=== PATIENT | male | born 1970 | race Caucasian/White ===

== ENCOUNTER 2018-04-29 10:56 | Inpatient (IN) | payer BC ==
[2018-04-29 12:27] VITALS: BMI 28.0
--- NOTE | 2018-04-29 15:32 | HP ---
CIWA Score - CIWA Score Nausea/Vomitin-No Nausea/No Vomiting Muscle Tremors: 3 Anxiety: 4-Mod. Anxious/Guarded Agitation: 4-Moderately Restless Paroxysmal Sweats: 1-Minimal Palms Moist Orientation: 0-Oriented Tacttile Disturbances: 0-None Auditory Disturbances: 0-None Visual Disturbances: 0-None Headache: 2-Mild CIWA-Ar Total Score: 14 Admission ROS [facility] - HPI Chief Complaint: ALCOHOL WITHDRAWAL SX Allergies/Adverse Reactions: Allergies Allergy/AdvReac Type Severity Reaction Status Date / Time No Known Allergies Allergy Verified 04/29/18 12:16 History of Present Illness: 47 Y/O H/MALE WITH A HX OF ALCOHOL DEPENDENCE SEEKING DETOX TX. PT HAS PREVIOUS HX OF DRUG TREATMENT. Exam Limitations: No Limitations, Intoxication (BUT COHERENT) - Ebola screening Have you traveled outside of the country in the last 21 days: No Have you had contact with anyone from an Ebola affected area: No Have you been sick,other than usual withdrawal symptoms: No - Review of Systems Constitutional: Chills, Loss of Appetite, Night Sweats, Changes in sleep (TAKES TRAZODONE FOR SLEEP), Unintentional Wgt. Loss EENT: reports: Blurred Vision, Nose Congestion Respiratory: reports: No Symptoms reported Cardiac: reports: Lightheadedness GI: reports: Diarrhea, Nausea, Poor Appetite, Poor Fluid Intake, Indigestion, Abdominal cramping : reports: Frequency Musculoskeletal: reports: Back Pain Integumentary: reports: No Symptoms Reported Neuro: reports: Headache, Tremors, Dizziness Endocrine: reports: No Symptoms Reported Hematology: reports: No Symptoms Reported Psychiatric: reports: Orientated x3 Other Systems: Reviewed and Negative Patient History - Patient Medical History Hx Anemia: No Hx Asthma: No Hx Chronic Obstructive Pulmonary Disease (COPD): No Hx Cardiac Disorders: No Hx Hypertension: No Hx Hypercholesterolemia: No HX Cerebrovascular Accident: No Hx Seizures: No (DENIES) Hx Diabetes: No Hx Gastrointestinal Disorders: Yes (GERD-TAKES NEXIUM) Hx Genitourinary Disorders: No Hx Sexually Transmitted Disorders: No (DENIES) Hx Renal Disease (ESRD): No Hx Thyroid Disease: No Hx Human Immunodeficiency Virus (HIV): No (NEGATIVE HX) Hx Hepatitis C: No Hx Depression: Yes (DECLINED PSYCH EVAL-- PT STATES NEVER SEEN ONE BEFORE) Hx Suicide Attempt: No (DENIES S/I) Hx Bipolar Disorder: No Hx Schizophrenia: No - Patient Surgical History Past Surgical History: Yes Hx Neurologic Surgery: No Hx Cataract Extraction: No Hx Cardiac Surgery: No Hx Lung Surgery: No Hx Breast Surgery: No Hx Breast Biopsy: No Hx Abdominal Surgery: No Hx Appendectomy: No Hx Cholecystectomy: No Hx Genitourinary Surgery: No Hx Orthopedic Surgery: No Other Surgical History: abrasion on the throat 2009 - PPD History Previous Implant?: Yes (HX PPD POSITIVE) Results: CXR NEG(05/25/12) PPD to be Administered?: No - Reproductive History Patient is a Female of Child Bearing Age (11 -55 yrs old): No (MALE) - Smoking Cessation Smoking history: Current every day smoker Have you smoked in the past 12 months: Yes Aproximately how many cigarettes per day: 20 Hx Chewing Tobacco Use: No Initiated information on smoking cessation: Yes 'Breaking Loose' booklet given: 04/29/18 - Substance & Tx. History Hx Alcohol Use: Yes Substance Use Type: Alcohol Hx Substance Use Treatment: Yes - Substances Abused Alcohol Route: Oral Frequency: Daily Amount used: Beer - 1 (12 pack) Age of first use: 20 Date of Last Use: 04/29/18 Family Disease History - Family Disease History Family History: Denies Admission Physical Exam BHS - Vital Signs Vital Signs: Vital Signs - 24 hr 04/29/18 12:25 Temperature 98.4 F Pulse Rate 81 Respiratory 20 Rate Blood Pressure 140/89 - Physical General Appearance: Yes: Moderate Distress, Alcohol on Breath, Intoxicated, Irritable, Anxious HEENTM: Yes: EOMI, Normocephalic, MÓNICA, Pharynx Normal Respiratory: Yes: Chest Non-Tender, Lungs Clear, Normal Breath Sounds, No Respiratory Distress Neck: Yes: No masses,lesions,Nodules, Supple, Trachea in good position Breast: Yes: Breast Exam Deferred Cardiology: Yes: Regular Rhythm, Regular Rate, S1, S2 Abdominal: Yes: Normal Bowel Sounds, Non Tender, Flat, Soft Genitourinary: Yes: Other (N/C) Back: Yes: Within Normal Limits Musculoskeletal: Yes: full range of Motion, Gait Steady Extremities: Yes: Normal Range of Motion, Non-Tender 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 NML intact, Fully Oriented, Alert, Motor Strength 5/5 Integumentary: Yes: Dry, Warm Lymphatic: Yes: Within Normal Limits - Diagnostic (1) Alcohol dependence with uncomplicated withdrawal Current Visit: Yes Status: Acute (2) GERD (gastroesophageal reflux disease) Current Visit: Yes Status: Chronic Qualifiers: Esophagitis presence: esophagitis presence not specified Qualified Code(s) : K21.9 - Gastro-esophageal reflux disease without esophagitis (3) Depressed affect Current Visit: Yes Status: Acute Cleared for Admission [facility] - Detox or Rehab [facility] Level of Care: Medically Managed Detox Regimen/Protocol: Librium S Breath Alcohol Content Breath Alcohol Content: 0.277 Urine Drug Screen - Results Drug Screen Negative: Yes
[2018-04-29] MEDS ORDERED: IBUPROFEN 400 MG TABLET (FP) PO PRN (15:52)
[2018-04-29] MEDS ORDERED: MAGNESIUM HYDROX 2400MG/30ML ORAL SUSPENSION 30 ML CUP PO PRN (15:52)
[2018-04-29] MEDS ORDERED: chlordiazePOXIDE HCL 25 MG CAPSULE PO PRN (15:52)
[2018-04-29] MEDS ORDERED: LOPERAMIDE HCL 2 MG CAPSULE PO PRN (15:52)
[2018-04-29] MEDS ORDERED: MAGNESIUM CITRATE 300 ML BOTTLE PO PRN (15:52)
[2018-04-29] MEDS ORDERED: guaiFENesin/D-METHORPHAN HB 10 ML UNIT-DOSE CUPS PO PRN (15:52)
[2018-04-29] MEDS ORDERED: MENTHOL/PHENOL 1 EACH UD MM PRN (15:52)
[2018-04-29] MEDS ORDERED: NICOTINE POLACRILEX 4 MG GUM BC PRN (15:52)
[2018-04-29] MEDS ORDERED: ACETAMINOPHEN 325 MG TABLET (FP) PO PRN (15:52)
[2018-04-29] MEDS ORDERED: P-EPHED 60MG/TRIPROLIDI 2.5MG TABLET PO PRN (15:52)
[2018-04-29] MEDS ORDERED: PANTOPRAZOLE 20 MG TABLET (FP) PO ONE (17:00)
[2018-04-29] MEDS: NICOTINE 21 MG/24 HOURS TOPICAL PATCH TD SCH (19:12)
[2018-04-29] MEDS: chlordiazePOXIDE HCL 25 MG CAPSULE PO SCH ×2 (19:13→22:18)
[2018-04-29] MEDS: THIAMINE HCL 100 MG TABLET (FP) PO SCH (22:18)
[2018-04-29] MEDS: MELATONIN 5 MG TABLETS PO PRN (22:19)
[2018-04-30] MEDS: MAG HYDROX/AL HYDROX/SIMETH 30 ML UNIT-DOSE CUP PO PRN ×2 (05:51→11:06)
[2018-04-30] MEDS: chlordiazePOXIDE HCL 25 MG CAPSULE PO SCH ×4 (05:51→22:17)
--- NOTE | 2018-04-30 08:44 | EKG ---
Test Reason : Blood Pressure : / mmHG Vent. Rate : 103 BPM Atrial Rate : 103 BPM P-R Int : 130 ms QRS Dur : 094 ms QT Int : 332 ms P-R-T Axes : 049 054 024 degrees QTc Int : 434 ms SINUS TACHYCARDIA NONSPECIFIC ST ABNORMALITY Confirmed by EM ASH MD ([id number]) on 04/30/2018 8:43:48 AM Referred By: Confirmed By:EM ASH MD
[2018-04-30 10:53] LABS: HEMATOCRIT 46.2 % (35.4-49); HEMOGLOBIN 16.1 GM/dL (11.7-16.9); MCH 32.6 pg (25.7-33.7); MCHC 34.9 g/dl (32.0-35.9); MEAN CELL VOLUME 93.6 fl (80-96); PLATELET COUNT 161 K/MM3 (134-434); RBC 4.94 M/mm3 (4.00-5.60); RDW 13.2 % (11.9-15.9); WHITE BLOOD COUNT 4.8 K/mm3 (4.0-10.0)
[2018-04-30] MEDS: NICOTINE 21 MG/24 HOURS TOPICAL PATCH TD SCH (11:04)
[2018-04-30] MEDS: PRENATAL VITAMINS W/ FOLIC ACID TABLET (FP) PO SCH (11:04)
[2018-04-30] MEDS: PANTOPRAZOLE 40 MG TABLET (FP) PO SCH (11:04)
[2018-04-30 11:32] LABS: SICKLE CELL SCREEN NEGATIVE (NEGATIVE)
--- NOTE | 2018-04-30 12:29 | CONSULT ---
[facility] Psychiatric Consult - Data Date of interview: 04/30/18 Admission source: [facility] Identifying data: Patient is a 46 year male, father of two, employed, and domiciled. This is patient's first admission to detox at [facility]. Pt. adimtted to [facility] for alcohol dependence. Substance Abuse History: - Smoking Cessation. Smoking history: Current every day smoker. Have you smoked in the past 12 months: Yes. Aproximately how many cigarettes per day: 20. Hx Chewing Tobacco Use: No. Initiated information on smoking cessation: Yes. 'Breaking Loose' booklet given: 04/29/18. - Substance & Tx. History. Hx Alcohol Use: Yes. Substance Use Type: Alcohol. Hx Substance Use Treatment: Yes. - Substances Abused. Alcohol. Route: Oral. Frequency: Daily. Amount used: Beer - 1 (12 pack). Age of first use: 20. Date of Last Use: 04/29/18 Medical History: abrasion on the throat 2009, GERD Psychiatric History: Patient denies h/o psychiatric hospitalization, outpatient care, and suicide attempt. Pt reports poor sleep and a history of anxiety. Physical/Sexual Abuse/Trauma History: Denies. Mental Status Exam - Mental Status Exam Alert and Oriented to: Time, Place, Person Cognitive Function: Good Patient Appearance: Well Groomed Mood: Hopeful, Euthymic Affect: Mood Congruent Patient Behavior: Appropriate, Cooperative Speech Pattern: Appropriate Voice Loudness: Normal Thought Process: Intact, Goal Oriented Thought Disorder: Not Present Hallucinations: Denies Suicidal Ideation: Denies Homicidal Ideation: Denies Insight/Judgement: Poor Sleep: Poorly Appetite: Fair Muscle strength/Tone: Normal Gait/Station: Normal Psychiatric Findings - Problem List ([place] 1, 2,3) (1) Alcohol dependence with uncomplicated withdrawal Current Visit: Yes Status: Acute (2) Insomnia Current Visit: Yes Status: Acute - Initial Treatment Plan Initial Treatment Plan: Psychoeducation provided. Detoxification in progress. Trazodone 50mg qhs ordered. Benefits and side effects discussed. Pt. reports favorable effects from previously accepting trazodone. Pt. made aware of the risk of priapism. Verbal consent given.
--- NOTE | 2018-04-30 13:06 | PN ---
S CIWA - CIWA Score Nausea/Vomitin-No Nausea/No Vomiting Muscle Tremors: 4-Moderate,w/Arms Extend Anxiety: 4-Mod. Anxious/Guarded Agitation: 4-Moderately Restless Paroxysmal Sweats: 1-Minimal Palms Moist Orientation: 0-Oriented Tacttile Disturbances: 0-None Auditory Disturbances: 0-None Visual Disturbances: 0-None Headache: 0-None Present CIWA-Ar Total Score: 13 BHS Progress Note (SOAP) Subjective: ANXIETY,SLIGHT TREMORS, SWEATS. OOB AMBULATING WITH STEADY GAIT. Objective: 04/30/18 13:05 Vital Signs 04/30/18 04/30/18 04/30/18 05:30 06:00 06:10 Temperature 96.7 F L Pulse Rate 68 69 69 Respiratory 18 18 18 Rate Blood Pressure 110/65 04/30/18 04/30/18 04/30/18 06:30 07:00 07:30 Temperature Pulse Rate 70 75 82 Respiratory 18 18 18 Rate Blood Pressure 04/30/18 04/30/18 04/30/18 08:00 08:30 09:00 Temperature Pulse Rate 90 84 86 Respiratory 18 18 Rate Blood Pressure 04/30/18 04/30/18 04/30/18 09:30 09:34 10:00 Temperature 99.0 F Pulse Rate 85 86 86 Respiratory 18 18 18 Rate Blood Pressure 132/92 Laboratory Tests 04/30/18 06:00 WBC 4.8 RBC 4.94 Hgb 16.1 Hct 46.2 MCV 93.6 MCH 32.6 MCHC 34.9 RDW 13.2 Plt Count 161 MPV 9.0 Sickle Cell Screen Negative OTHER LABS PENDING UA UNCOLLECTED Assessment: 04/30/18 13:06 WITHDRAWAL SX Plan: CONTINUE DETOX
[2018-04-30 13:34] LABS: ALBUMIN 4.7 g/dl (3.4-5.0); ALK PHOS 117 U/L (45-117); ANION GAP 9 (8-16); BILIRUBIN,TOTAL 0.6 mg/dL (0.2-1.0); BLOOD UREA NITROGEN 6 mg/dL (7-18); CALCIUM 8.7 mg/dL (8.5-10.1); CHLORIDE 101 mmol/L (98-107); CO2 30 mmol/L (21-32); GLUCOSE,RANDOM 151 mg/dL (74-106); POTASSIUM 4.9 mmol/L (3.5-5.1); SGOT/AST 47 U/L (15-37); SGPT/ALT 38 U/L (12-78); SODIUM 140 mmol/L (136-145); TOT PROT 8.8 g/dl (6.4-8.2)
[2018-04-30] MEDS: hydrOXYzine PAMOATE 50 MG CAPSULE (FP) PO PRN ×2 (17:36→22:18)
[2018-04-30] MEDS: traZODone HCL 50 MG TABLET (FP) PO SCH (22:17)
[2018-04-30] MEDS: THIAMINE HCL 100 MG TABLET (FP) PO SCH (22:17)
[2018-05-01] MEDS: MAG HYDROX/AL HYDROX/SIMETH 30 ML UNIT-DOSE CUP PO PRN ×2 (00:48→23:06)
[2018-05-01] MEDS: chlordiazePOXIDE HCL 25 MG CAPSULE PO SCH ×2 (06:00→10:24)
[2018-05-01] MEDS: PRENATAL VITAMINS W/ FOLIC ACID TABLET (FP) PO SCH (10:24)
[2018-05-01] MEDS: PANTOPRAZOLE 40 MG TABLET (FP) PO SCH (10:24)
[2018-05-01] MEDS: NICOTINE 21 MG/24 HOURS TOPICAL PATCH TD SCH (10:25)
--- NOTE | 2018-05-01 12:36 | PN ---
S CIWA - CIWA Score Nausea/Vomitin-No Nausea/No Vomiting Muscle Tremors: 4-Moderate,w/Arms Extend Anxiety: 4-Mod. Anxious/Guarded Agitation: 4-Moderately Restless Paroxysmal Sweats: 1-Minimal Palms Moist Orientation: 0-Oriented Tacttile Disturbances: 0-None Auditory Disturbances: 0-None Visual Disturbances: 0-None Headache: 0-None Present CIWA-Ar Total Score: 13 BHS Progress Note (SOAP) Subjective: ANXIETY, TREMORS, SWEATS. Objective: 05/01/18 12:35 Vital Signs 05/01/18 05/01/18 05/01/18 06:18 06:30 09:33 Temperature 97.6 F 97.1 F L Pulse Rate 68 73 Respiratory 18 18 18 Rate Blood Pressure 102/63 136/90 Laboratory Tests 04/30/18 04/30/18 04/30/18 06:00 06:00 06:00 WBC 4.8 RBC 4.94 Hgb 16.1 Hct 46.2 MCV 93.6 MCH 32.6 MCHC 34.9 RDW 13.2 Plt Count 161 MPV 9.0 Sickle Cell Screen Negative Sodium 140 Potassium 4.9 D Chloride 101 Carbon Dioxide 30 Anion Gap 9 BUN 6 L Creatinine 1.0 Creat Clearance w eGFR > 60 Random Glucose 151 H D Calcium 8.7 Total Bilirubin 0.6 AST 47 H D ALT 38 D Alkaline Phosphatase 117 Total Protein 8.8 H Albumin 4.7 RPR Titer HIV 1&2 Antibody Screen Negative HIV P24 Antigen Negative 04/30/18 06:00 WBC RBC Hgb Hct MCV MCH MCHC RDW Plt Count MPV Sickle Cell Screen Sodium Potassium Chloride Carbon Dioxide Anion Gap BUN Creatinine Creat Clearance w eGFR Random Glucose Calcium Total Bilirubin AST ALT Alkaline Phosphatase Total Protein Albumin RPR Titer Nonreactive HIV 1&2 Antibody Screen HIV P24 Antigen Assessment: 05/01/18 12:35 WITHDRAWAL SX Plan: CONTINUE DETOX
[2018-05-01] MEDS: hydrOXYzine PAMOATE 50 MG CAPSULE (FP) PO PRN ×3 (12:57→23:06)
[2018-05-01] MEDS: chlordiazePOXIDE 5 MG CAPSULE PO SCH ×2 (17:45→23:03)
[2018-05-01] MEDS: THIAMINE HCL 100 MG TABLET (FP) PO SCH (23:03)
[2018-05-01] MEDS: traZODone HCL 50 MG TABLET (FP) PO SCH (23:03)
[2018-05-02] MEDS: MELATONIN 5 MG TABLETS PO PRN ×2 (02:13→22:44)
[2018-05-02] MEDS: chlordiazePOXIDE 5 MG CAPSULE PO SCH ×2 (05:39→10:43)
[2018-05-02] MEDS: hydrOXYzine PAMOATE 50 MG CAPSULE (FP) PO PRN ×2 (09:33→22:46)
[2018-05-02] MEDS: NICOTINE 21 MG/24 HOURS TOPICAL PATCH TD SCH (09:35)
[2018-05-02] MEDS: PANTOPRAZOLE 40 MG TABLET (FP) PO SCH (09:35)
[2018-05-02] MEDS: PRENATAL VITAMINS W/ FOLIC ACID TABLET (FP) PO SCH (09:35)
--- NOTE | 2018-05-02 14:27 | PN ---
S Progress Note (SOAP) Subjective: Anxious, tremor, chills, diarrhea; patient requesting Rx for vistaril to help with anxiety and insomnia. As per patient, he has an appt on Thursday with a psychiatrist and needs vistaril to at least help with sleeping. Medical Affairs Leader explained to patient that he should not take vistaril if he's going to drive or operate machinery due to drowsiness. Patient stated he will only take vistaril at bedtime. Vistaril 50mg PO qhs prn #30, eRx to patient's pharmacy Objective: 05/02/18 14:24 Last Vital Signs Temp Pulse Resp BP Pulse Ox 96.7 F L 63 18 116/76 05/02/18 14:04 05/02/18 14:04 05/02/18 14:04 05/02/18 14:04 Laboratory Tests 04/30/18 04/30/18 04/30/18 06:00 06:00 06:00 WBC 4.8 RBC 4.94 Hgb 16.1 Hct 46.2 MCV 93.6 MCH 32.6 MCHC 34.9 RDW 13.2 Plt Count 161 MPV 9.0 Sickle Cell Screen Negative Sodium 140 Potassium 4.9 D Chloride 101 Carbon Dioxide 30 Anion Gap 9 BUN 6 L Creatinine 1.0 Creat Clearance w eGFR > 60 Random Glucose 151 H D Calcium 8.7 Total Bilirubin 0.6 AST 47 H D ALT 38 D Alkaline Phosphatase 117 Total Protein 8.8 H Albumin 4.7 RPR Titer HIV 1&2 Antibody Screen Negative HIV P24 Antigen Negative 04/30/18 06:00 WBC RBC Hgb Hct MCV MCH MCHC RDW Plt Count MPV Sickle Cell Screen Sodium Potassium Chloride Carbon Dioxide Anion Gap BUN Creatinine Creat Clearance w eGFR Random Glucose Calcium Total Bilirubin AST ALT Alkaline Phosphatase Total Protein Albumin RPR Titer Nonreactive HIV 1&2 Antibody Screen HIV P24 Antigen Labs reviewed: serum glucose 151mg/dl Assessment: 05/02/18 14:25 Withdrawal symptoms Noted with hyperglycemia Plan: Continue detox Hyperglycemia: monitor FS, follow up with PCP for monitoring
[2018-05-02] MEDS: INSULIN SLIDING SCALE (NOVOLOG) 1 VIAL SQ SCH (16:45)
[2018-05-02] MEDS: chlordiazePOXIDE HCL 10 MG CAPSULE PO SCH ×2 (17:41→22:43)
[2018-05-02] MEDS: THIAMINE HCL 100 MG TABLET (FP) PO SCH (22:43)
[2018-05-02] MEDS: traZODone HCL 50 MG TABLET (FP) PO SCH (22:43)
[2018-05-03] MEDS: chlordiazePOXIDE HCL 10 MG CAPSULE PO SCH (05:42)
[2018-05-03] MEDS: hydrOXYzine PAMOATE 50 MG CAPSULE (FP) PO PRN (05:49)
[2018-05-03] MEDS: INSULIN SLIDING SCALE (NOVOLOG) 1 VIAL SQ SCH (06:28)
[2018-05-03 06:31] VITALS: BP 109/63; PULSE 49; TEMP 97.1
[2018-05-03 10:19] LABS: URINE APPEARANCE CLEAR; URINE BILIRUBIN NEGATIVE (<2.0 mg/dL); URINE COLOR YELLOW; URINE GLUCOSE (UA) NEGATIVE (NEGATIVE); URINE KETONE NEGATIVE (NEGATIVE); URINE LEUK ESTERASE NEGATIVE (NEGATIVE); URINE NITRITE NEGATIVE (NEGATIVE); URINE PROTEIN NEGATIVE (NEGATIVE); URINE UROBILINOGEN NEGATIVE mg/dL (0.2-1.0)
== END 2018-05-03 07:15 | disposition home or self-care (01) | DRG 897 ==
LOC: YASAS 10:56 → Y3N 16:04
PROVIDERS: ADMIT Surgery; ATTEND Surgery
PROC: HZ2ZZZZ Detoxification Services for Substance Abuse Treatment (ICD-10-PCS; principal; 2018-04-29)
DX: F10.230 Alcohol dependence with withdrawal, uncomplicated (principal); F17.210 Nicotine dependence, cigarettes, uncomplicated; F32.9 Major depressive disorder, single episode, unspecified; F41.9 Anxiety disorder, unspecified; K21.9 Gastro-esophageal reflux disease without esophagitis; R73.9 Hyperglycemia, unspecified; R76.11 Nonspecific reaction to tuberculin skin test without active tuberculosis; G47.00 Insomnia, unspecified
CPT/HCPCS: 36415; 71046-TC-FY; 80053; 81003; 82962; 85027; 85660; 86593; 87389; 93005; 93010

== ENCOUNTER 2018-10-05 09:53 | Inpatient (IN) | payer BC ==
[2018-10-05 10:25] VITALS: BMI 30.3
--- NOTE | 2018-10-05 12:13 | HP ---
CIWA Score Nausea/Vomitin-No Nausea/No Vomiting Muscle Tremors: None Anxiety: 4-Mod. Anxious/Guarded Agitation: 0-Normal Activity Paroxysmal Sweats: No Perspiration Orientation: 2-Disoriented Date<2 days Tacttile Disturbances: 3-Moderate Itch/Numb/Burn Auditory Disturbances: 3-Moderate Harsh/Frighten Visual Disturbances: 3-Moderate Sensitivity Headache: 0-None Present CIWA-Ar Total Score: 15 - Admission Criteria [facility] Guidelines: Admission for Medically Managed Detox: Requires at least one of the followin. CIWA greater than 12 2. Seizures within the past 24 hours 3. Delirium tremens within the past 24 hours 4. Hallucinations within the past 24 hours 5. Acute intervention needed for co occurring medical disorder 6. Acute intervention needed for co occurring psychiatric disorder 7. Severe withdrawal that cannot be handled at a lower level of care (continued vomiting, continued diarrhea, abnormal vital signs) requiring intravenous medication and/or fluids 8. Patient presents the following: CIWA greater than 12 Admission Criteria Met: Admission criteria met Admission ROS [facility] - HPI Allergies/Adverse Reactions: Allergies Allergy/AdvReac Type Severity Reaction Status Date / Time No Known Allergies Allergy Verified 10/05/18 11:36 History of Present Illness: patient here requesting detox from etoh use , reports 12-pk /day since d/c from [employer] [id number] service . latest use today , current TED 0.339 , denies seizures, blackouts , + tremors if not drinking , DUI 1992 , + driving currently denies driving while intoxicated . utox negative . 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 Exam Limitations: Intoxication - Ebola screening Have you traveled outside of the country in the last 21 days: No Have you had contact with anyone from an Ebola affected area: No Have you been sick,other than usual withdrawal symptoms: No Do you have a fever: No - Review of Systems Constitutional: See HPI EENT: reports: Other (denies vision changes) Respiratory: reports: No Symptoms reported Cardiac: reports: No Symptoms Reported GI: reports: No Symptoms Reported : reports: No Symptoms Reported Musculoskeletal: reports: No Symptoms Reported Integumentary: reports: No Symptoms Reported Neuro: reports: See HPI Psychiatric: reports: Orientated x3, Agitated, Depressed Patient History - Patient Medical History Hx Anemia: No Hx Asthma: No Hx Chronic Obstructive Pulmonary Disease (COPD): No Hx Cardiac Disorders: No Hx Hypertension: No Hx Hypercholesterolemia: No HX Cerebrovascular Accident: No Hx Seizures: No Hx Diabetes: No Hx Gastrointestinal Disorders: Yes (gastric ulcer in 11/2010) Hx Genitourinary Disorders: No Hx Sexually Transmitted Disorders: No Hx Renal Disease (ESRD): No Hx Thyroid Disease: No Hx Human Immunodeficiency Virus (HIV): No (NEGATIVE HX) Hx Hepatitis C: No Hx Depression: No Hx Suicide Attempt: No Hx Bipolar Disorder: No Hx Schizophrenia: No - Patient Surgical History Past Surgical History: Yes Hx Neurologic Surgery: No Hx Cataract Extraction: No Hx Cardiac Surgery: No Hx Lung Surgery: No Hx Breast Surgery: No Hx Breast Biopsy: No Hx Abdominal Surgery: No Hx Appendectomy: No Hx Cholecystectomy: No Hx Genitourinary Surgery: No Hx Section: No Hx Orthopedic Surgery: No Other Surgical History: abrasion, throat in 11/2009 Anesthesia Reaction: No - PPD History Documented Results: Positive w/o proof Results: CXR NEG(05/25/12) - Smoking Cessation Smoking history: Current every day smoker Have you smoked in the past 12 months: Yes Aproximately how many cigarettes per day: 20 Hx Chewing Tobacco Use: No Initiated information on smoking cessation: No - Substances Abused Alcohol-beer Route: Oral Frequency: Daily Amount used: 2-6 pks. Age of first use: 18 Date of Last Use: 10/05/18 Family Disease History - Family Disease History Family History: Unable to Obtain (intoxicated) Admission Physical Exam S - Vital Signs Vital Signs: Vital Signs - 24 hr 10/05/18 10:22 Temperature 97.9 F Pulse Rate 89 Respiratory 18 Rate Blood Pressure 143/95 - Physical General Appearance: Yes: Moderate Distress, Intoxicated HEENTM: Yes: EOMI, Hearing grossly Normal, Normocephalic, Normal Voice, Scleral Ictenus R, Scleral Ictenus L Respiratory: Yes: Chest Non-Tender, Lungs Clear, Normal Breath Sounds Neck: Yes: No masses,lesions,Nodules, Trachea in good position Breast: Yes: Breast Exam Deferred Cardiology: Yes: Regular Rhythm, Regular Rate, S1, S2, Tachycardia Abdominal: Yes: Normal Bowel Sounds, Non Tender, Soft Genitourinary: Yes: Within Normal Limits Back: Yes: Normal Inspection Musculoskeletal: Yes: full range of Motion, Gait Steady Extremities: Yes: Normal Capillary Refill, Non-Tender Neurological: Yes: Alert, Motor Strength 5/5, Disoriented Integumentary: Yes: Normal Color, Dry, Warm - Diagnostic (1) Alcohol intoxication delirium Current Visit: Yes Status: Acute (2) Nicotine dependence Current Visit: Yes Status: Chronic Qualifiers: Nicotine product type: cigarettes BHS Breath Alcohol Content Breath Alcohol Content: 0.339 Urine Drug Screen - Results Drug Screen Negative: Yes
[2018-10-05] MEDS ORDERED: IBUPROFEN 400 MG TABLET (FP) PO PRN (12:20)
[2018-10-05] MEDS ORDERED: P-EPHED 60MG/TRIPROLIDI 2.5MG TABLET PO PRN (12:20)
[2018-10-05] MEDS ORDERED: guaiFENesin/D-METHORPHAN HB 10 ML UNIT-DOSE CUPS PO PRN (12:20)
[2018-10-05] MEDS ORDERED: MAGNESIUM CITRATE 300 ML BOTTLE PO PRN (12:20)
[2018-10-05] MEDS ORDERED: MAGNESIUM HYDROX 2400MG/30ML ORAL SUSPENSION 30 ML CUP PO PRN (12:20)
[2018-10-05] MEDS ORDERED: MENTHOL/PHENOL 1 EACH UD MM PRN (12:20)
[2018-10-05] MEDS ORDERED: LOPERAMIDE HCL 2 MG CAPSULE PO PRN (12:20)
[2018-10-05] MEDS ORDERED: ACETAMINOPHEN 325 MG TABLET (FP) PO PRN (12:20)
[2018-10-05] MEDS: chlordiazePOXIDE HCL 25 MG CAPSULE PO PRN (14:52)
[2018-10-05] MEDS: chlordiazePOXIDE HCL 25 MG CAPSULE PO SCH ×2 (18:06→22:22)
[2018-10-05] MEDS: MELATONIN 5 MG TABLETS PO PRN (22:22)
[2018-10-05] MEDS: THIAMINE HCL 100 MG TABLET (FP) PO SCH (22:22)
[2018-10-06] MEDS: chlordiazePOXIDE HCL 25 MG CAPSULE PO SCH ×4 (05:34→22:16)
[2018-10-06 10:15] LABS: HEMATOCRIT 46.8 % (35.4-49); HEMOGLOBIN 16.3 GM/dL (11.7-16.9); MCH 31.9 pg (25.7-33.7); MCHC 34.8 g/dl (32.0-35.9); MEAN CELL VOLUME 91.6 fl (80-96); MEAN PLT VOLUME 8.8 fl (7.5-11.1); PLATELET COUNT 179 K/MM3 (134-434); RBC 5.11 M/mm3 (4.00-5.60); WHITE BLOOD COUNT 6.5 K/mm3 (4.0-10.0)
[2018-10-06] MEDS: PRENATAL VITAMINS W/ FOLIC ACID TABLET (FP) PO SCH (10:17)
[2018-10-06 10:30] LABS: ALBUMIN 4.5 g/dl (3.4-5.0); ALK PHOS 128 U/L (45-117); ANION GAP 13 MMOL/L (8-16); BILIRUBIN,TOTAL 0.7 mg/dL (0.2-1); BLOOD UREA NITROGEN 7 mg/dL (7-18); CALCIUM 8.7 mg/dL (8.5-10.1); CHLORIDE 98 mmol/L (98-107); CO2 25 mmol/L (21-32); CREATININE 0.9 mg/dL (0.55-1.3); GLUCOSE,RANDOM 119 mg/dL (74-106); POTASSIUM 3.9 mmol/L (3.5-5.1); SGOT/AST 64 U/L (15-37); SGPT/ALT 35 U/L (13-61); SODIUM 137 mmol/L (136-145); TOT PROT 8.3 g/dl (6.4-8.2)
--- NOTE | 2018-10-06 11:38 | PN ---
S CIWA - CIWA Score Nausea/Vomitin-No Nausea/No Vomiting Muscle Tremors: 3 Anxiety: 4-Mod. Anxious/Guarded Agitation: 4-Moderately Restless Paroxysmal Sweats: 3 Orientation: 0-Oriented Tacttile Disturbances: 0-None Auditory Disturbances: 0-None Visual Disturbances: 0-None Headache: 1-Very Mild CIWA-Ar Total Score: 15 BHS Progress Note (SOAP) Subjective: body aches sweats shakes interrupted sleep insomnia Objective: 10/06/18 11:38 Vital Signs Temperature 97.8 F 10/06/18 11:15 Pulse Rate 63 10/06/18 11:15 Respiratory Rate 16 10/06/18 11:15 Blood Pressure 112/80 10/06/18 11:15 O2 Sat by Pulse Oximetry (%) Laboratory Tests 10/06/18 10/06/18 10/06/18 06:00 06:00 06:00 WBC 6.5 RBC 5.11 Hgb 16.3 Hct 46.8 MCV 91.6 MCH 31.9 MCHC 34.8 RDW 13.0 Plt Count 179 MPV 8.8 Sodium 137 Potassium 3.9 Chloride 98 Carbon Dioxide 25 Anion Gap 13 BUN 7 Creatinine 0.9 Creat Clearance w eGFR > 60 Random Glucose 119 H Calcium 8.7 Total Bilirubin 0.7 AST 64 H ALT 35 Alkaline Phosphatase 128 H Total Protein 8.3 H Albumin 4.5 RPR Titer Nonreactive aaox3 ambulating no acute distress Assessment: 10/06/18 11:38 withdrawal sx Plan: continue detox increase fluids
[2018-10-06] MEDS: chlordiazePOXIDE HCL 25 MG CAPSULE PO PRN (14:08)
[2018-10-06] MEDS: THIAMINE HCL 100 MG TABLET (FP) PO SCH (22:16)
[2018-10-06] MEDS: MELATONIN 5 MG TABLETS PO PRN (22:17)
[2018-10-07] MEDS: chlordiazePOXIDE HCL 25 MG CAPSULE PO PRN ×2 (01:55→14:10)
[2018-10-07] MEDS: chlordiazePOXIDE HCL 25 MG CAPSULE PO SCH ×2 (05:43→10:16)
[2018-10-07] MEDS: PRENATAL VITAMINS W/ FOLIC ACID TABLET (FP) PO SCH (10:16)
--- NOTE | 2018-10-07 12:01 | PN ---
S CIWA - CIWA Score Nausea/Vomitin-No Nausea/No Vomiting Muscle Tremors: 3 Anxiety: 3 Agitation: 3 Paroxysmal Sweats: 2 Orientation: 0-Oriented Tacttile Disturbances: 0-None Auditory Disturbances: 0-None Visual Disturbances: 0-None Headache: 0-None Present CIWA-Ar Total Score: 11 S Progress Note (SOAP) Subjective: insomnia sweats shakes body aches i tried the melatonin but did not help Objective: 10/07/18 11:59 Vital Signs Temperature 98.2 F 10/07/18 09:32 Pulse Rate 70 10/07/18 09:32 Respiratory Rate 18 10/07/18 09:32 Blood Pressure 123/76 10/07/18 09:32 O2 Sat by Pulse Oximetry (%) Laboratory Tests 10/06/18 10/06/18 10/06/18 06:00 06:00 06:00 WBC 6.5 RBC 5.11 Hgb 16.3 Hct 46.8 MCV 91.6 MCH 31.9 MCHC 34.8 RDW 13.0 Plt Count 179 MPV 8.8 Sodium 137 Potassium 3.9 Chloride 98 Carbon Dioxide 25 Anion Gap 13 BUN 7 Creatinine 0.9 Creat Clearance w eGFR > 60 Random Glucose 119 H Calcium 8.7 Total Bilirubin 0.7 AST 64 H ALT 35 Alkaline Phosphatase 128 H Total Protein 8.3 H Albumin 4.5 RPR Titer Nonreactive aaox3 ambulating no acute distress Assessment: 10/07/18 12:00 withdrawal sx Plan: continue detox increase fluids trazadone 50mg qhs d/c melatoinin
[2018-10-07] MEDS: chlordiazePOXIDE 5 MG CAPSULE PO SCH ×2 (17:47→22:15)
[2018-10-07] MEDS: traZODone HCL 50 MG TABLET (FP) PO SCH (22:14)
[2018-10-07] MEDS: THIAMINE HCL 100 MG TABLET (FP) PO SCH (22:15)
[2018-10-07] MEDS: MAG HYDROX/AL HYDROX/SIMETH 30 ML UNIT-DOSE CUP PO PRN (22:17)
[2018-10-08] MEDS: chlordiazePOXIDE 5 MG CAPSULE PO SCH ×2 (05:59→10:14)
[2018-10-08] MEDS: PRENATAL VITAMINS W/ FOLIC ACID TABLET (FP) PO SCH (10:14)
--- NOTE | 2018-10-08 11:37 | PN ---
BHS Progress Note (SOAP) Subjective: feeling much better little anxiety Objective: 10/08/18 11:36 Vital Signs Temperature 98.2 F 10/08/18 09:53 Pulse Rate 69 10/08/18 09:53 Respiratory Rate 16 10/08/18 09:53 Blood Pressure 120/57 L 10/08/18 09:53 O2 Sat by Pulse Oximetry (%) aaox3 ambulating no acute distress Assessment: 10/08/18 11:36 mild withdrawal sx Plan: continue detox increase fluids d/c in am
[2018-10-08] MEDS: chlordiazePOXIDE HCL 10 MG CAPSULE PO SCH ×2 (17:48→22:07)
[2018-10-08] MEDS: THIAMINE HCL 100 MG TABLET (FP) PO SCH (22:07)
[2018-10-08] MEDS: traZODone HCL 50 MG TABLET (FP) PO SCH (22:07)
[2018-10-09] MEDS: MAG HYDROX/AL HYDROX/SIMETH 30 ML UNIT-DOSE CUP PO PRN (02:19)
[2018-10-09] MEDS: chlordiazePOXIDE HCL 10 MG CAPSULE PO SCH (05:45)
[2018-10-09 08:16] VITALS: BP 115/71; PULSE 55; TEMP 97.7
== END 2018-10-09 07:52 | disposition home or self-care (01) | DRG 897 ==
LOC: YASAS 09:53 → Y6N 12:30
PROVIDERS: ADMIT Neuromusculoskeletal Medicine & OMM; ATTEND Neuromusculoskeletal Medicine & OMM
PROC: HZ2ZZZZ Detoxification Services for Substance Abuse Treatment (ICD-10-PCS; principal; 2018-10-05)
DX: F10.121 Alcohol abuse with intoxication delirium (principal); F17.210 Nicotine dependence, cigarettes, uncomplicated; R00.0 Tachycardia, unspecified
CPT/HCPCS: 36415; 80053; 85027; 86593

== ENCOUNTER 2019-02-08 17:42 | Inpatient (IN) | payer BC | END 2019-02-13 09:22 | disposition home or self-care (01) | LOC: YASAS 17:42 → Y3N 02-09 01:09 ==

== ENCOUNTER 2019-02-26 12:41 | Inpatient (IN) | payer BC ==
[2019-02-26 13:48] VITALS: BMI 29.0
--- NOTE | 2019-02-26 15:45 | HP ---
CIWA Score Nausea/Vomitin Muscle Tremors: 2 Anxiety: 2 Agitation: 2 Paroxysmal Sweats: 1-Minimal Palms Moist Orientation: 0-Oriented Tacttile Disturbances: 1-Very Mild Itch/Numbness Auditory Disturbances: 1-Very Mild Visual Disturbances: 0-None Headache: 2-Mild CIWA-Ar Total Score: 13 - Admission Criteria OASAS Guidelines: Admission for Medically Managed Detox: Requires at least one of the followin. CIWA greater than 12 2. Seizures within the past 24 hours 3. Delirium tremens within the past 24 hours 4. Hallucinations within the past 24 hours 5. Acute intervention needed for co occurring medical disorder 6. Acute intervention needed for co occurring psychiatric disorder 7. Severe withdrawal that cannot be handled at a lower level of care (continued vomiting, continued diarrhea, abnormal vital signs) requiring intravenous medication and/or fluids 8. Admission ROS BHS - HPI Chief Complaint: i need help to stop drinking alcohol Allergies/Adverse Reactions: Allergies Allergy/AdvReac Type Severity Reaction Status Date / Time fish derived Allergy Verified 02/26/19 13:37 No Known Drug Allergies Allergy Verified 02/26/19 13:37 History of Present Illness: this 48 years old male with alcohol dependence,seeking detox,withdrawal symptom, had previous admissions before but keep relapsing nicotine dependence 1 pack/day,would like nicotine patch,and gum depression not on medication Exam Limitations: No Limitations - Ebola screening Have you traveled outside of the country in the last 21 days: No (N) Have you had contact with anyone from an Ebola affected area: No Do you have a fever: No - Review of Systems Constitutional: Loss of Appetite, Malaise, Night Sweats, Changes in sleep, Weakness EENT: reports: No Symptoms Reported Respiratory: reports: No Symptoms reported Cardiac: reports: No Symptoms Reported GI: reports: Nausea, Poor Appetite, Abdominal cramping : reports: No Symptoms Reported Musculoskeletal: reports: Back Pain, Muscle Pain Integumentary: reports: Dryness Neuro: reports: Headache, Tremors Endocrine: reports: No Symptoms Reported Hematology: reports: No Symptoms Reported Psychiatric: reports: No Sypmtoms Reported, Judgement Intact, Mood/Affect Appropiate, Orientated x3 Other Systems: Reviewed and Negative Patient History - Patient Medical History Hx Anemia: No Hx Asthma: No Hx Chronic Obstructive Pulmonary Disease (COPD): No Hx Cardiac Disorders: No Hx Hypertension: No Hx Hypercholesterolemia: No HX Cerebrovascular Accident: No Hx Seizures: No Hx Diabetes: No Hx Gastrointestinal Disorders: Yes (gastritis in 11/2010) Hx Genitourinary Disorders: No Hx Sexually Transmitted Disorders: No Hx Renal Disease (ESRD): No Hx Thyroid Disease: No Hx Human Immunodeficiency Virus (HIV): No (NEGATIVE HX last 08/08) Hx Hepatitis C: No Hx Depression: No Hx Suicide Attempt: No (Denies suicidal ideation at this time) Hx Bipolar Disorder: No Hx Schizophrenia: No Other Medical History: no suicidal,no homicidal - Patient Surgical History Past Surgical History: Yes Hx Neurologic Surgery: No Hx Cataract Extraction: No Hx Cardiac Surgery: No Hx Lung Surgery: No Hx Breast Surgery: No Hx Breast Biopsy: No Hx Abdominal Surgery: No Hx Appendectomy: No Hx Cholecystectomy: No Hx Genitourinary Surgery: No Hx Section: No Hx Orthopedic Surgery: No Other Surgical History: abrasion, throat in 11/2009 Anesthesia Reaction: No - PPD History Previous Implant?: Yes Documented Results: Positive w/proof Implanted On Prior [facility] Admission?: No Results: cxr02/11/19neg PPD to be Administered?: No - Smoking Cessation Smoking history: Current every day smoker Have you smoked in the past 12 months: Yes Aproximately how many cigarettes per day: 20 Hx Chewing Tobacco Use: No Initiated information on smoking cessation: Yes 'Breaking Loose' booklet given: 02/26/19 - Substance & Tx. History Hx Alcohol Use: Yes Hx Substance Use: No Substance Use Type: Alcohol Hx Substance Use Treatment: Yes ([facility] 02/09/19 to 02/13/19) - Substances abused Alcohol Substance route: Oral Frequency: Daily Amount used: 12 PACK BEER 12 ozs Age of first use: 18 Date of last use: 02/26/19 Family Disease History - Family Disease History Family History: Denies Admission Physical Exam BHS - Vital Signs Vital Signs: Vital Signs - 24 hr 02/26/19 02/26/19 13:39 15:34 Temperature 98.2 F 98.2 F Pulse Rate 82 82 Respiratory 18 18 Rate Blood Pressure 150/97 150/97 - Physical General Appearance: Yes: Moderate Distress, Tremorous, Irritable, Sweating, Anxious HEENTM: Yes: Normal ENT Inspection, MÓNICA, Pharynx Normal Respiratory: Yes: Lungs Clear, Normal Breath Sounds, No Respiratory Distress Neck: Yes: Within Normal Limits, Supple, Trachea in good position Breast: Yes: Within Normal Limits Cardiology: Yes: Within Normal Limits, Regular Rhythm, Regular Rate, S1, S2 Abdominal: Yes: Within Normal Limits, Normal Bowel Sounds, Non Tender, Flat, Soft Genitourinary: Yes: Within Normal Limits Back: Yes: Muscle Spasm Musculoskeletal: Yes: Back pain, Muscle Pain Extremities: Yes: Tremors 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 NML intact, Fully Oriented, Alert, Motor Strength 5/5 Integumentary: Yes: Within Normal Limits, Dry Lymphatic: Yes: Within Normal Limits - Diagnostic (1) Alcohol dependence with uncomplicated withdrawal Current Visit: No Status: Acute (2) Alcohol abuse with uncomplicated intoxication Current Visit: Yes Status: Acute (3) GERD (gastroesophageal reflux disease) Current Visit: No Status: Chronic Qualifiers: Esophagitis presence: without esophagitis Qualified Code(s): K21.9 - Gastro -esophageal reflux disease without esophagitis (4) History of depression Current Visit: No Status: Chronic Comment: Non-compliant with medication ( prozac). (5) Nicotine dependence Current Visit: No Status: Acute Qualifiers: Nicotine product type: cigarettes Substance use status: in withdrawal Qualified Code(s): F17.213 - Nicotine dependence, cigarettes, with withdrawal (6) PPD positive Current Visit: No Status: Resolved Cleared for Admission S - Detox or Rehab [facility] Level of Care: Medically Managed Detox Regimen/Protocol: Librium Breathalyzer - Breathalyzer Breathalyzer: 0.322 Urine Drug Screen - Test Device Lot number: [id number] Expiration date: 11/18/20 - Control Is test valid?: Yes - Results Drug screen NEGATIVE: No Urine drug screen results: BZO-Benzodiazepines Inpatient Rehab Admission - Rehab Decision to Admit Inpatient rehab admission?: No
[2019-02-26] MEDS ORDERED: IBUPROFEN 400 MG TABLET (FP) PO PRN (16:02)
[2019-02-26] MEDS ORDERED: METHOCARBAMOL 500 MG TABLET PO PRN (16:02)
[2019-02-26] MEDS ORDERED: MENTHOL/PHENOL 1 EACH UD MM PRN (16:02)
[2019-02-26] MEDS ORDERED: BISMUTH SUBSALICYLATE 524 MG/30 ML UD PO PRN (16:02)
[2019-02-26] MEDS ORDERED: ACETAMINOPHEN 325 MG TABLET (FP) PO PRN ×2 (16:02)
[2019-02-26] MEDS ORDERED: MAGNESIUM CITRATE 300 ML BOTTLE PO PRN (16:02)
[2019-02-26] MEDS ORDERED: MAGNESIUM HYDROX 2400MG/30ML ORAL SUSPENSION 30 ML CUP PO PRN (16:02)
[2019-02-26] MEDS ORDERED: MAG HYDROX/AL HYDROX/SIMETH 30 ML UNIT-DOSE CUP PO PRN (16:02)
[2019-02-26] MEDS ORDERED: MELATONIN 5 MG TABLETS PO PRN (16:02)
[2019-02-26] MEDS: NICOTINE 21 MG/24 HOURS TOPICAL PATCH TD SCH (17:24)
[2019-02-26] MEDS: chlordiazePOXIDE HCL 25 MG CAPSULE PO PRN ×2 (17:24→20:55)
[2019-02-26] MEDS: hydrOXYzine PAMOATE 25 MG CAPSULE (FP) PO PRN (19:40)
[2019-02-26] MEDS: THIAMINE HCL 100 MG TABLET (FP) PO SCH (22:32)
[2019-02-26] MEDS: chlordiazePOXIDE HCL 25 MG CAPSULE PO SCH (22:32)
[2019-02-27] MEDS: chlordiazePOXIDE HCL 25 MG CAPSULE PO SCH ×4 (06:04→22:16)
[2019-02-27] MEDS: hydrOXYzine PAMOATE 25 MG CAPSULE (FP) PO PRN (09:18)
[2019-02-27] MEDS: NICOTINE 21 MG/24 HOURS TOPICAL PATCH TD SCH (10:12)
[2019-02-27] MEDS: PRENATAL VITAMINS W/ FOLIC ACID TABLET (FP) PO SCH (10:12)
[2019-02-27 10:41] LABS: ALBUMIN 4.2 g/dl (3.4-5.0); BILIRUBIN,TOTAL 0.5 mg/dL (0.2-1); BLOOD UREA NITROGEN 4.6 mg/dL (7-18); CALCIUM 8.8 mg/dL (8.5-10.1); CREATININE 0.8 mg/dL (0.55-1.3); POTASSIUM 3.8 mmol/L (3.5-5.1); TOT PROT 7.2 g/dl (6.4-8.2)
[2019-02-27 10:55] LABS: HEMATOCRIT 40.3 % (35.4-49); HEMOGLOBIN 13.8 GM/dL (11.7-16.9); MCH 32.2 pg (25.7-33.7); MCHC 34.2 g/dl (32.0-35.9); MEAN CELL VOLUME 94.2 fl (80-96); MEAN PLT VOLUME 8.4 fl (7.5-11.1); PLATELET COUNT 171 K/MM3 (134-434); RBC 4.28 M/mm3 (4.00-5.60); WHITE BLOOD COUNT 3.1 K/mm3 (4.0-10.0)
--- NOTE | 2019-02-27 11:26 | CONSULT ---
[facility] Psychiatric Consult - Data Date of interview: 02/27/19 Admission source: Self-referred Identifying data: Mr Bae is 48 years old [place]-born male, father of 2 childrem, employed at [employer], living with parents seeking detox treatment for alcohol Substance Abuse History: Reports histoy of alcohol use. Refer to addiction counselor's summary for further information Medical History: Significant for GERD, history of surgery for varices in his throat. Smokes cigarettes 1 ppd Psychiatric History: Reports that his first psychiatric contact was in 2018 when [place] [facility] [place], [place] He was diagnosed with MDD and started on Prozac. Reports not currently receiving psychiatric treatment but he is prescribed Prozac 10 mg/day by Madeline Hope MD , his primary care physician. Claims that he stopped taking it 2 weeks ago because of somnolence. Denies previous psychiatric hospitalization or suicidal attempt. At present, reports feeling depressed, anxious and sleeping poorly. Requests to resume Prozac at bedtime and to have medication ordered for sleep. Physical/Sexual Abuse/Trauma History: Denies history of . Reports serving in the [employer] from 1992 to 1994. Discharge was honorable Additional Comment: Reports history of one previous recent arrest on charges of DUI. Claims to have a court date Mental Status Exam - Mental Status Exam Alert and Oriented to: Time, Place, Person Cognitive Function: Fair Patient Appearance: Well Groomed Mood: Depressed, Anxious Affect: Appropriate Patient Behavior: Cooperative Speech Pattern: Clear Voice Loudness: Normal Thought Process: Intact, Goal Oriented Hallucinations: Denies Suicidal Ideation: Denies Homicidal Ideation: Denies Insight/Judgement: Poor Sleep: Poorly Appetite: Fair Muscle strength/Tone: Normal Gait/Station: Normal Psychiatric Findings - Problem List ([facility] 1, 2,3) (1) Depressive disorder Current Visit: Yes Status: Chronic (2) MDD (major depressive disorder) Current Visit: Yes Status: Resolved (3) Alcohol-induced mood disorder Current Visit: Yes Status: Acute (4) Alcohol-induced sleep disorder Current Visit: Yes Status: Acute (5) Alcohol abuse with uncomplicated intoxication Current Visit: Yes Status: Acute (6) Nicotine dependence Current Visit: No Status: Chronic Qualifiers: Nicotine product type: cigarettes Substance use status: in withdrawal Qualified Code(s): F17.213 - Nicotine dependence, cigarettes, with withdrawal (7) GERD (gastroesophageal reflux disease) Current Visit: No Status: Chronic Qualifiers: Esophagitis presence: without esophagitis Qualified Code(s): K21.9 - Gastro -esophageal reflux disease without esophagitis - Initial Treatment Plan Initial Treatment Plan: 1) Resume Prozac 10 mg po HS. 2) Start Belsomra 10 mg po HS prn for insomnia. 3) Continue inpatient detoxification
[2019-02-27] MEDS ORDERED: cloNIDine HCL 0.1 MG TABLET PO PRN (14:33)
--- NOTE | 2019-02-27 14:35 | PN ---
S CIWA - CIWA Score Nausea/Vomitin-Mild Nausea/No Vomiting Muscle Tremors: 4-Moderate,w/Arms Extend Anxiety: 3 Agitation: 3 Paroxysmal Sweats: 3 Orientation: 0-Oriented Tacttile Disturbances: 0-None Auditory Disturbances: 0-None Visual Disturbances: 0-None Headache: 0-None Present CIWA-Ar Total Score: 14 S Progress Note (SOAP) Subjective: Tremor, sweating, headache, interrupted sleep Objective: 02/27/19 14:31 Last Vital Signs Temp Pulse Resp BP Pulse Ox 98.8 F 81 18 136/83 02/27/19 13:58 02/27/19 13:58 02/27/19 13:58 02/27/19 13:58 Elevated b/p noted: denies htn; could be r/t withdrawal. Start clonidine prn. Laboratory Tests 02/27/19 02/27/19 02/27/19 07:30 07:30 07:30 WBC 3.1 L RBC 4.28 Hgb 13.8 Hct 40.3 MCV 94.2 MCH 32.2 MCHC 34.2 RDW 15.0 MPV 8.4 Sodium 141 Potassium 3.8 Chloride 102 Carbon Dioxide 30 Anion Gap 9 BUN 4.6 L Creatinine 0.8 Est GFR (CKD-EPI)AfAm 124.16 Est GFR (CKD-EPI)NonAf 107.13 Random Glucose 82 Calcium 8.8 Total Bilirubin 0.5 AST 56 H ALT 52 Alkaline Phosphatase 123 H Total Protein 7.2 Albumin 4.2 RPR Titer Nonreactive Labs reviewed Assessment: 02/27/19 14:35 Withdrawal symptoms Plan: Continue detox Encouraged PO water intake
[2019-02-27] MEDS: THIAMINE HCL 100 MG TABLET (FP) PO SCH (22:17)
[2019-02-27] MEDS: FLUoxetine HCL 10 MG TABLET PO SCH (22:17)
[2019-02-27] MEDS: SUVOREXANT 10 MG TABLET PO PRN (22:17)
[2019-02-28] MEDS: chlordiazePOXIDE HCL 25 MG CAPSULE PO SCH ×3 (06:05→18:01)
--- NOTE | 2019-02-28 09:40 | PN ---
[facility] CIWA - CIWA Score Nausea/Vomitin-No Nausea/No Vomiting Muscle Tremors: 3 Anxiety: 2 Agitation: 3 Paroxysmal Sweats: 3 Orientation: 0-Oriented Tacttile Disturbances: 0-None Auditory Disturbances: 0-None Visual Disturbances: 0-None Headache: 0-None Present CIWA-Ar Total Score: 11 S Progress Note (SOAP) Subjective: shakes interrupted sleep sweats anxiety Objective: 02/28/19 10:24 Vital Signs Temperature 98.2 F 02/28/19 09:16 Pulse Rate 71 02/28/19 09:16 Respiratory Rate 18 02/28/19 09:16 Blood Pressure 146/92 02/28/19 09:16 O2 Sat by Pulse Oximetry (%) Laboratory Tests 02/27/19 02/27/19 02/27/19 07:30 07:30 07:30 WBC 3.1 L RBC 4.28 Hgb 13.8 Hct 40.3 MCV 94.2 MCH 32.2 MCHC 34.2 RDW 15.0 Plt Count 171 D MPV 8.4 Sodium 141 Potassium 3.8 Chloride 102 Carbon Dioxide 30 Anion Gap 9 BUN 4.6 L Creatinine 0.8 Est GFR (CKD-EPI)AfAm 124.16 Est GFR (CKD-EPI)NonAf 107.13 Random Glucose 82 Calcium 8.8 Total Bilirubin 0.5 AST 56 H ALT 52 Alkaline Phosphatase 123 H Total Protein 7.2 Albumin 4.2 RPR Titer Nonreactive labs noted aaox3 ambulating no acute distress Assessment: 02/28/19 10:56 withdrawal sx Plan: continue detox increase fluids
[2019-02-28] MEDS: NICOTINE 21 MG/24 HOURS TOPICAL PATCH TD SCH (10:24)
[2019-02-28] MEDS: PRENATAL VITAMINS W/ FOLIC ACID TABLET (FP) PO SCH (10:24)
[2019-02-28] MEDS: hydrOXYzine PAMOATE 25 MG CAPSULE (FP) PO PRN (11:55)
[2019-02-28] MEDS: NICOTINE POLACRILEX 2 MG GUM BUC PRN (18:01)
[2019-02-28] MEDS: FLUoxetine HCL 10 MG TABLET PO SCH (22:29)
[2019-02-28] MEDS: chlordiazePOXIDE HCL 10 MG CAPSULE PO SCH (22:29)
[2019-02-28] MEDS: THIAMINE HCL 100 MG TABLET (FP) PO SCH (22:30)
[2019-02-28] MEDS ORDERED: chlordiazePOXIDE HCL 10 MG CAPSULE PO PRN (23:00)
[2019-02-28] MEDS: SUVOREXANT 10 MG TABLET PO PRN (23:43)
[2019-03-01] MEDS: chlordiazePOXIDE HCL 10 MG CAPSULE PO SCH ×3 (05:27→17:26)
[2019-03-01] MEDS: PRENATAL VITAMINS W/ FOLIC ACID TABLET (FP) PO SCH (10:11)
[2019-03-01] MEDS: NICOTINE 21 MG/24 HOURS TOPICAL PATCH TD SCH (10:11)
--- NOTE | 2019-03-01 10:15 | PN ---
S CIWA - CIWA Score Nausea/Vomitin-No Nausea/No Vomiting Muscle Tremors: 2 Anxiety: 2 Agitation: 2 Paroxysmal Sweats: 2 Orientation: 0-Oriented Tacttile Disturbances: 0-None Auditory Disturbances: 0-None Visual Disturbances: 0-None Headache: 0-None Present CIWA-Ar Total Score: 8 BHS Progress Note (SOAP) Subjective: sweats anxiety Objective: 03/01/19 10:14 Vital Signs Temperature 98.1 F 03/01/19 10:01 Pulse Rate 70 03/01/19 10:01 Respiratory Rate 16 03/01/19 10:01 Blood Pressure 132/88 03/01/19 10:01 O2 Sat by Pulse Oximetry (%) aaox3 ambulating no acute distress Assessment: 03/01/19 10:15 mild withdrawal sx Plan: continue detox increase fluids d/c in am
[2019-03-01] MEDS: NICOTINE POLACRILEX 2 MG GUM BUC PRN (14:11)
[2019-03-01] MEDS: THIAMINE HCL 100 MG TABLET (FP) PO SCH (22:08)
[2019-03-01] MEDS: FLUoxetine HCL 10 MG TABLET PO SCH (22:08)
[2019-03-01] MEDS ORDERED: chlordiazePOXIDE HCL 10 MG CAPSULE PO SCH (23:00)
[2019-03-02 08:16] VITALS: BP 96/54; PULSE 64; TEMP 97.3
--- NOTE | 2019-03-02 08:34 | DS ---
[facility] Detox Discharge Summary Admission Date: 02/26/19 Discharge Date: 03/02/19 - History Present History: Alcohol Dependence - Physical Exam Results Vital Signs: Vital Signs Temperature 97.3 F L 03/02/19 08:15 Pulse Rate 64 03/02/19 08:15 Respiratory Rate 18 03/02/19 08:15 Blood Pressure 96/54 L 03/02/19 08:15 O2 Sat by Pulse Oximetry (%) - Treatment Hospital Course: Detox Protocol Followed, Detoxed Safely, Responded well, Discharged Condition Good, Rehab Referral Accepted - Medication Discharge Medications: Ambulatory Orders Naltrexone Microspheres [Vivitrol] 380 mg IM MONTHLY 02/08/19 - Diagnosis (1) Alcohol abuse with uncomplicated intoxication Current Visit: Yes Status: Chronic (2) Alcohol-induced mood disorder Current Visit: Yes Status: Acute (3) Alcohol-induced sleep disorder Current Visit: Yes Status: Acute (4) Depressive disorder Current Visit: Yes Status: Chronic (5) MDD (major depressive disorder) Current Visit: Yes Status: Resolved (6) Alcohol dependence with uncomplicated withdrawal Current Visit: Yes Status: Chronic (7) Anxiety Current Visit: No Status: Chronic (8) Depressed affect Current Visit: No Status: Chronic (9) GERD (gastroesophageal reflux disease) Current Visit: Yes Status: Chronic Qualifiers: Esophagitis presence: without esophagitis Qualified Code(s): K21.9 - Gastro -esophageal reflux disease without esophagitis (10) Insomnia Current Visit: No Status: Chronic (11) Nicotine dependence Current Visit: Yes Status: Chronic Qualifiers: Nicotine product type: cigarettes Substance use status: uncomplicated Qualified Code(s): F17.210 - Nicotine dependence, cigarettes, uncomplicated (12) PPD positive Current Visit: No Status: Resolved - AMA Did Patient Leave Against Medical Advice: No (going home; declined aftercare)
== END 2019-03-02 09:08 | disposition home or self-care (01) | DRG 897 ==
LOC: YASAS 12:41 → Y6N 16:09
PROVIDERS: ADMIT Surgery; ATTEND Surgery
PROC: HZ2ZZZZ Detoxification Services for Substance Abuse Treatment (ICD-10-PCS; principal; 2019-02-26)
DX: F10.230 Alcohol dependence with withdrawal, uncomplicated (principal); F33.9 Major depressive disorder, recurrent, unspecified; F10.220 Alcohol dependence with intoxication, uncomplicated; F10.24 Alcohol dependence with alcohol-induced mood disorder; F10.282 Alcohol dependence with alcohol-induced sleep disorder; F41.9 Anxiety disorder, unspecified; G47.00 Insomnia, unspecified; K21.9 Gastro-esophageal reflux disease without esophagitis; R03.0 Elevated blood-pressure reading, without diagnosis of hypertension; R76.11 Nonspecific reaction to tuberculin skin test without active tuberculosis; R45.89 Other symptoms and signs involving emotional state; Z91.013 Allergy to seafood
CPT/HCPCS: 36415; 80053; 85027; 86593